=== PATIENT | female | born 1970 | race Caucasian/White ===

== ENCOUNTER 2019-02-20 11:41 | Emergency (ER) | payer MEDICAID, SELFPAY ==
[2019-02-20 11:49] VITALS: BP 102/60; PULSE 65; RESP 16; TEMP 36.6; O2SAT 99
--- NOTE | 2019-02-20 11:52 | ED.GENADUL_ITS ---
Discharge Plan Disposition Patient Disposition: HOME Condition: Stable Discharge Details Chief Complaint: Orthopedic Clinical Impression: Left wrist sprain Primary Care Provider: Hugo Sexton ED Provider: Yesi Cervantes Home Meds and New Rx's Prescriptions: Continued metoprolol succinate 100 mg Tablet Extended Release 24 Hr 100 mg PO DAILY RF: 0 aspirin 81 mg Tablet,Delayed Release (Dr/Ec) 81 mg PO BID RF: 0 acetaminophen [Tylenol Extra Strength] 500 mg Tablet 1,000 mg PO PRNRF: 0 lisinopril-hydrochlorothiazide 20-25 mg Tablet 1 tab PO DAILY RF: 0 Discharge Instructions Instructions: Wrist Sprain (ED) Additional Instructions: Rest, ice and elevate left wrist as much as possible. Take Tylenol as needed and directed for pain. Follow-up with your primary care doctor in 1 week as needed. Return to the emergency department with any worsening or new concerning symptoms. Discharge Data Discharge Physician: Yesi Cervantes Medical Decision Making 48-year-old female presents with left wrist pain after slip and fall on water onto her outstretched left hand. Tenderness to palpation of left dorsal wrist. No snuffbox tenderness. No deformities noted. No obvious trauma noted. Neurovascular intact. Pain with range of motion. Xray negative. [place] wrist splint placed. Instructed on the importance of RICE. Advised to follow up with the primary care doctor for re-evaluation as needed. Usual and customary return precautions given prior to discharge. Medical Records Medical records reviewed: Yes I reviewed the patient's medical records. Imaging Data Radiologic Study: Radiologist's impression: XR Left Wrist Exam date and time: 02/20/2019 12:00 PM Age: 48 years old Clinical indication: Other: S/P fall, R/O acute fracture TECHNIQUE: Imaging protocol: XR Left wrist. Views: 3 or more views. COMPARISON: No relevant prior studies available. FINDINGS: Bones/joints: No acute fracture. Joint spaces are maintained. Soft tissues: Normal. IMPRESSION: No acute findings. HPI General Mode of arrival: ambulatory . Date/Time Provider Initiated Documentation: 02/20/19 11:43 . Limitations to Documentation: no limitations . Information obtained by: patient . History of Present Illness 48 year old F presents to the emergency department with the chief complaint of L wrist pain , and is localized to the upper extremity (L wrist). Patient started experiencing this hour(s) (this morning) and it has been constant. No relieving factors improve symptom(s), No exacerbating factors reported . Patient notes no other symptoms.. Patient did receive the following treatments prior to arrival, other (tylenol early this am ) Related Data Home Medications Medication Instructions Recorded Confirmed acetaminophen [Tylenol Extra 1,000 mg PO PRN 02/20/19 Strength] aspirin 81 mg PO BID 02/20/19 02/20/19 lisinopril-hydrochlorothiazide 1 tab PO DAILY 02/20/19 02/20/19 metoprolol succinate 100 mg PO DAILY 02/20/19 02/20/19 Allergies Allergy/AdvReac Type Severity Reaction Status Date / Time No Known Allergies Allergy Unverified 02/20/19 11:51 General Stated Complaint: Orthopedic AGUEDA: 4 Review of Systems All systems reviewed & are unremarkable except as noted in HPI and below PFSH Social History Smoking/Tobacco Use Status: Never Alcohol Intake: never Substance use type: does not use Exam Const General: cooperative, healthy appearing and no acute distress HENMT Head: normal to inspection Mouth: oral mucosae normal Eyes General: appearance normal, both eyes and all related structures Neck Neck: normal visual inspection Resp Effort & Inspection: normal respiratory effort and able to speak in complete sentences Cardio Rate: regular rate Skin General skin exam: no rashes or lesions noted Neuro General: alert, awake and oriented x3 Motor: muscle tone normal throughout Extrem Elbow/forearm/wrist images: 1. Tenderness overlying left dorsal wrist. No left snuffbox tenderness. Other: No edema, ecchymosis, erythema, deformity. No tenderness to palpation of L dorsal hand. Reproduction of pain with flexion/extension/pronation and supination. Left radial pulse intact. Psych Appearance: grossly normal Affect: normal affect Course Vital Signs Vital signs: Vital Signs Temperature 97.9 F 02/20/19 11:49 Pulse 65 02/20/19 11:49 Respiratory Rate 16 02/20/19 11:49 Blood Pressure 102/60 02/20/19 11:49 Pulse Oximetry 99 02/20/19 11:49 Temperature 97.9 F 02/20/19 11:49 Temperature Source Skin 02/20/19 11:49 Pulse 65 02/20/19 11:49 Respiratory Rate 16 02/20/19 11:49 Respiratory Effort Non-Labored 02/20/19 11:49 Blood Pressure 102/60 02/20/19 11:49 Blood Pressure Position Sitting 02/20/19 11:49 Pulse Oximetry 99 02/20/19 11:49 Pain Level 5 02/20/19 11:49
--- NOTE | 2019-02-20 12:12 | DI.RAD_ITS ---
EXAM: XR WRIST LT COMPLETE CLINICAL HISTORY: s/p fall, r/o acute fracture. TECHNIQUE: 2D digital imaging was performed. COMPARISON: No exams were available for comparison FINDINGS: BONES: No acute fracture is present. No bony destructive lesion is seen. JOINTS: The carpal bones are normally aligned. SOFT TISSUE: Normal. IMPRESSION: Unremarkable radiographs of the left wrist.
--- NOTE | 2019-02-20 12:19 | DI.VRAD_ITS ---
PROCEDURE INFORMATION: Exam: XR Left Wrist Exam date and time: 02/20/2019 12:00 PM Age: 48 years old Clinical indication: Other: S/P fall, R/O acute fracture TECHNIQUE: Imaging protocol: XR Left wrist. Views: 3 or more views. COMPARISON: No relevant prior studies available. FINDINGS: Bones/joints: No acute fracture. Joint spaces are maintained. Soft tissues: Normal. IMPRESSION: No acute findings. Dictated and Authenticated by: Anjum Stanley MD. Ordering:PHILIP Key MD
== END 2019-02-20 12:41 | disposition home or self-care (01) ==
PROVIDERS: Emergency Provider Physician Assistant; PCP Family Medicine
DX: S63.502A Unspecified sprain of left wrist, initial encounter (principal); W01.0XXA Fall on same level from slipping, tripping and stumbling without subsequent striking against object, initial encounter
CPT/HCPCS: 29125; 99283; 73110; L3908

== ENCOUNTER 2022-12-03 12:36 | Emergency (ER) | payer MEDICAID, SELFPAY ==
[2022-12-03 12:42] VITALS: BP 265/136; PULSE 72; RESP 16; TEMP 36.7; O2SAT 98
--- NOTE | 2022-12-03 13:00 | ED.GENADUL_ITS ---
Discharge Plan Disposition Patient Disposition: Home Condition: Good Discharge Details Clinical Impression: Finger pain Primary Care Provider: Hugo Sexton ED Provider: Kanchan Trinidad Home Meds and New Rx's Prescriptions: No Action metoprolol succinate 100 mg Tablet Extended Release 24 Hr 100 mg PO DAILY aspirin 81 mg Tablet,Delayed Release (Dr/Ec) 81 mg PO BID acetaminophen [Tylenol Extra Strength] 500 mg Tablet 1,000 mg PO PRN lisinopril-hydrochlorothiazide 20-25 mg Tablet 1 tab PO DAILY Discharge Instructions Instructions: Hypertension (ED) Additional Instructions: If your rings are too tight please remove them while it is still possible (though difficult). Return to the emergency department for new or recurring symptoms, including if this happens again or if you have pain/numbness in your affected finger. Call your primary care doctor today to schedule an appointment to followup on your visit here and to discuss your blood pressure. Please take your blood pressure medication at home as prescribed. Medical Decision Making 52yo F with HTN presenting with stuck ring on right ring finger; yesterday doing a lot of work with her hands, since last night progressively worsening swelling to right ring finger and ring stuck. Markedly hypertensive on arrival; patient states not taking her home medications though she does have them at home. Exam with tight ring on right 4th digit, marked distal swelling and some color change, sensation intact. Ring removed with ring cutter; patient tolerated well, reports immediate improvement in pain. Not concerning for infection /tenosynoviitis/etc. Advised patient to remain in the ED to receive antihypertensivess (would give home meds) and repeat BP; patient declined and states she will take her medications at home. No headache, vision changes, abdominal pain, or change in urine output to suggest hypertensive emergency. Strongly counseled to take her home medications regularly, dangers of untreated chronic hypertension reviewed. Discharged home; discharge instructions including return precautions were reviewed with patient who verbalized understanding. All questions were answered and they are in full agreement with the plan. HPI General Mode of arrival: ambulatory . Date/Time Provider Initiated Documentation: 12/03/22 12:52 . Limitations to Documentation: no limitations . Information obtained by: patient . HPI Narrative: 52yo F with HTN presenting with stuck ring on right ring finger. Yesterday doing a lot of work with her hands. Last night noted swelling and discomfort to her right ring finger. Has been worsening since then, today more swollen, blue, very painful. Unable to remove ring at home. No numbness. Otherwise in her usual state of health. Related Data Home Medications Medication Instructions Recorded Confirmed acetaminophen 500 mg tablet 1,000 mg PO PRN 02/20/19 (Tylenol Extra Strength) aspirin 81 mg tablet,delayed 81 mg PO BID 02/20/19 02/20/19 release lisinopril 20 1 tab PO DAILY 02/20/19 02/20/19 mg-hydrochlorothiazide 25 mg tablet metoprolol succinate 100 mg 100 mg PO DAILY 02/20/19 02/20/19 tablet,extended release 24 hr Allergies Allergy/AdvReac Type Severity Reaction Status Date / Time No Known Allergies Allergy Unverified 02/20/19 11:51 General Stated Complaint: GenMedical AGUEDA: 4 Review of Systems Narrative: see HPI PFSH All Active Problems (Updated 12/03/22 @ 13:06 by Kanchan Trinidad MD) Finger pain (Acute) Social History Smoking/Tobacco Use Status: Never Smoking risk assessment performed?: Yes Alcohol Intake: never Substance use type: does not use Exam Narrative Exam Narrative: General: Alert, well appearing, well nourished, in no acute distress. Head: Normocephalic, atraumatic Neck: Trachea midline, Neck supple. Cardiac: No central cyanosis. Resp: No respiratory distress. Speaking in full sentences. . Abd: Non-distended Extremities: No deformities. No peripheral edema. Right 4th digit swollen, slightly blue, tight ring in place, sensation intact. Neurologic: GCS 15. Moves all extremities freely against gravity Course Vital Signs Vital signs: Vital Signs Temperature 36.7 C 12/03/22 12:42 Pulse 72 12/03/22 12:42 Respiratory Rate 16 12/03/22 12:42 Blood Pressure 265/136 H 12/03/22 12:42 Pulse Oximetry 98 12/03/22 12:42 Temperature 36.7 C 12/03/22 12:42 Temperature Source Tympanic 12/03/22 12:42 Pulse 72 12/03/22 12:42 Respiratory Rate 16 12/03/22 12:42 Blood Pressure 265/136 H 12/03/22 12:42 Pulse Oximetry 98 12/03/22 12:42 Procedures Other Description: Ring removal. Patient positioned appropriately. Ring cutter used to remove ring, saline for cooling. Tolerated well with no complications.
--- NOTE | 2022-12-04 09:15 | NUR.NOTE ---
Accessed Pt chart to check to see if medications were given upon discharge.
== END 2022-12-03 13:22 | disposition home or self-care (01) ==
LOC: ER 13:19
PROVIDERS: Emergency Provider Student in an Organized Health Care Education/Training Program; PCP Family Medicine
DX: M79.644 Pain in right finger(s) (principal)
CPT/HCPCS: 99281; 99282